=== PATIENT | female | born 2000 | race African-American/Black ===

== ENCOUNTER 2023-10-24 09:09 | Emergency (ER) | payer MEDICAID ==
[~2023-10-24] VITALS: Ht 162.6 cm; Wt 50.0 kg
[2023-10-24 09:16] VITALS: O2SAT 100
[2023-10-24 10:19] LABS: BASOPHILS % 0.7 % (0.0-2.0); DIFFERENTIAL COMMENT 0; EOSINOPHILS % 1.7 % (0.0-5.0); HEMATOCRIT. 32.6 % (36.0-48.0); HEMOGLOBIN. 10.3 g/dL (12.0-16.0); LYMPHOCYTES % 28.1 % (20.0-50.0); MEAN CORPUSCULAR HGB CONC 31.5 g/dL (31.0-37.0); MEAN CORPUSCULAR VOLUME 79.4 fL (81.0-99.0); MEAN PLATELET VOLUME 7.4 fl (7.4-10.4); MONOCYTES % 8.9 % (2.0-8.0); NEUTROPHILS % 60.6 % (40.0-76.0); PLATELET 407 x1000/uL (130-400); RED CELL DISTRIBUTION WIDTH 18.1 % (11.6-14.6); WHITE BLOOD COUNT 5.6 x1000/uL (4.5-11.0)
[2023-10-24 11:29] LABS: ALANINE AMINOTRANSFERASE 21 IU/L (10-49); ALBUMIN 3.8 g/dL (3.2-4.8); ASPARTATE AMINOTRANSFERASE 20 IU/L (<34); B-HCG QUANTITATIVE 197364 mIU/mL (<3); BILIRUBIN TOTAL 0.2 mg/dL (0.1-1.0); CALCIUM 8.2 mg/dL (8.7-10.4); CARBON DIOXIDE 22 mEq/L (21-32); CHLORIDE 109 mEq/L (98-107); CREATININE 0.5 mg/dL (0.6-1.0); GLUCOSE 82 mg/dL (70-105); POTASSIUM 3.8 mEq/L (3.5-5.1); PROTEIN TOTAL 6.6 g/dL (6.0-8.3); SODIUM 135 mEq/L (136-145); UREA NITROGEN BLOOD 7 mg/dL (9-23)
[2023-10-24] MEDS ORDERED: TOPUD PO (12:45)
[2023-10-24 12:54] VITALS: BP 96/60; PULSE 72; RESP 18; TEMP 98.3
[2023-10-24] MEDS: ACETAMINOPHEN 325MG TABLET PO ONE (13:15)
== END 2023-10-24 13:16 | disposition home or self-care (01) ==
LOC: ER 09:09
DX: O26.891 Other specified pregnancy related conditions, first trimester (principal); R10.10 Upper abdominal pain, unspecified; Z3A.08 8 weeks gestation of pregnancy
CPT/HCPCS: 36415; 76801; 80053; 84702; 85025; 86850; 86900; 99284

== ENCOUNTER 2024-01-06 12:02 | Emergency (ER) | payer MEDICAID, OTHER ==
[~2024-01-06] VITALS: Ht 157.5 cm; Wt 50.0 kg
[~2024-01-06 12:02] MED LIST: TOPUD PO
[2024-01-06 12:04] VITALS: O2SAT 100
[2024-01-06] MEDS: ACETAMINOPHEN 325MG TABLET PO ONE (13:36)
[2024-01-06 15:04] LABS: HEMATOCRIT. 32.5 % (36.0-48.0); HEMOGLOBIN. 10.9 g/dL (12.0-16.0); MEAN CORPUSCULAR HEMOGLOBIN 27.3 pg (28.0-32.0); MEAN CORPUSCULAR HGB CONC 33.6 g/dL (31.0-37.0); MEAN CORPUSCULAR VOLUME 81.4 fL (81.0-99.0); MEAN PLATELET VOLUME 7.4 fl (7.4-10.4); PLATELET 344 x1000/uL (130-400); RED BLOOD CELL COUNT 3.99 mill/uL (4.2-5.4); RED CELL DISTRIBUTION WIDTH 17.2 % (11.6-14.6); WHITE BLOOD COUNT 9.1 x1000/uL (4.5-11.0)
[2024-01-06 15:08] LABS: DIFFERENTIAL COMMENT 1
[2024-01-06 15:15] LABS: CARBON DIOXIDE 21 mEq/L (21-32); CHLORIDE 100 mEq/L (98-107); POTASSIUM 3.4 mEq/L (3.5-5.1); SODIUM 129 mEq/L (136-145)
[2024-01-06 15:16] LABS: CALCIUM 9.3 mg/dL (8.7-10.4)
[2024-01-06 15:20] LABS: CREATININE 0.4 mg/dL (0.6-1.0); GLUCOSE 89 mg/dL (70-105)
[2024-01-06 15:22] LABS: ALANINE AMINOTRANSFERASE 15 IU/L (10-49); ALBUMIN 4.2 g/dL (3.2-4.8); ASPARTATE AMINOTRANSFERASE 20 IU/L (<34)
[2024-01-06 15:23] LABS: BILIRUBIN DIRECT 0.1 mg/dL (<=3.0); BILIRUBIN TOTAL 0.5 mg/dL (0.1-1.0); PROTEIN TOTAL 6.8 g/dL (6.0-8.3)
[2024-01-06 15:25] LABS: UREA NITROGEN BLOOD < 5 mg/dL (9-23)
[2024-01-06 16:02] LABS: B-HCG QUANTITATIVE 41360 mIU/mL (<3)
[2024-01-06 16:23] LABS: PLATELET ESTIMATE NORMAL
[2024-01-06 16:51] LABS: CLARITY URINE CLOUDY (CLEAR); COLOR URINE YELLOW (YELLOW); GLUCOSE URINE NEGATIVE (NEGATIVE); KETONES URINE TRACE (NEGATIVE); LEUKOCYTE ESTERASE URINE 3+ (NEGATIVE); NITRITE URINE POSITIVE (NEGATIVE); OCCULT BLOOD URINE NEGATIVE (NEGATIVE); PH URINE 7.5 (4.5-8.0); PROTEIN URINE NEGATIVE (NEGATIVE); SPECIFIC GRAVITY URINE 1.004 (1.005-1.030)
[2024-01-06] MEDS ORDERED: CEPH250C2 MT (16:56)
[2024-01-06 17:00] VITALS: BP 128/82; PULSE 98; RESP 18; TEMP 100.4
[2024-01-06 17:04] LABS: RBC URINE 0-2 /hpf (0-2); SQUAMOUS EPITHELIAL CELL URINE 1+ /lpf (RARE/1+)
[2024-01-06 17:05] LABS: BACTERIA URINE 4+; YEAST URINE NONE SEEN
== END 2024-01-06 17:02 | disposition home or self-care (01) ==
LOC: ER 12:02
DX: O26.892 Other specified pregnancy related conditions, second trimester (principal); R51.9 Headache, unspecified; Z3A.18 18 weeks gestation of pregnancy
CPT/HCPCS: 36415; 76805; 80048; 80076; 81003; 84702; 85025; 86850; 86900; 87077; 87186; 99284

== ENCOUNTER 2024-07-10 00:45 | Inpatient (IN) | payer OTHER ==
[~2024-07-10] VITALS: Ht 152.4 cm; Wt 54.4 kg
[~2024-07-10 00:45] MED LIST changes: +CEPH250C2 MT
[2024-07-10 02:50] LABS: BASOPHILS % 0.5 % (0.0-2.0); DIFFERENTIAL COMMENT 0; EOSINOPHILS % 0.7 % (0.0-5.0); HEMATOCRIT. 34.8 % (36.0-48.0); HEMOGLOBIN. 10.8 g/dL (12.0-16.0); LYMPHOCYTES % 18.7 % (20.0-50.0); MEAN CORPUSCULAR HGB CONC 31.1 g/dL (31.0-37.0); MEAN CORPUSCULAR VOLUME 73.8 fL (81.0-99.0); MEAN PLATELET VOLUME 6.8 fl (7.4-10.4); MONOCYTES % 6.7 % (2.0-8.0); NEUTROPHILS % 73.4 % (40.0-76.0); PLATELET 400 x1000/uL (130-400); RED BLOOD CELL COUNT 4.71 mill/uL (4.2-5.4); RED CELL DISTRIBUTION WIDTH 21.6 % (11.6-14.6)
[2024-07-10 03:04] LABS: CHLORIDE 105 mEq/L (98-107); POTASSIUM 4.2 mEq/L (3.5-5.1); SODIUM 136 mEq/L (136-145)
[2024-07-10 03:05] LABS: CALCIUM 10.5 mg/dL (8.7-10.4); CARBON DIOXIDE 25 mEq/L (21-32)
[2024-07-10 03:10] LABS: CREATININE 0.8 mg/dL (0.6-1.0); GLUCOSE 105 mg/dL (70-105); UREA NITROGEN BLOOD 11 mg/dL (9-23)
[2024-07-10 03:15] LABS: HCG SCREEN NEGATIVE
[2024-07-10] MEDS: CEFTRIAXONE 2GM/50ML 50 ML IV ONE (05:12)
[2024-07-10] MEDS: ACETAMINOPHEN 1000MG/100ML 100 ML IV ONE (05:45)
[2024-07-10] MEDS: SODIUM CHLORIDE 0.9% 1,000 ML IV ONE (06:31)
[2024-07-10] MEDS: AMPICILLIN SOD/SULBACTAM NA 3 G in SODIUM CHLORIDE 0.9% 100 ML IV SCH (06:35)
[2024-07-10] MEDS ORDERED: IOHEXOL-300 100 ML BOTTLE ONE (06:48)
[2024-07-10 12:30] VITALS: BP 104/58; PULSE 86; RESP 18; TEMP 36.72516; O2SAT 98
[2024-07-10 14:07] VITALS: BP 103/58; PULSE 86; RESP 19; TEMP 36.7516
[2024-07-10 16:00] VITALS: BP 110/72; PULSE 79; RESP 19; TEMP 36.50292; O2SAT 100
[2024-07-10 20:00] VITALS: BP 105/58; PULSE 75; RESP 18; TEMP 36.114; O2SAT 100
[2024-07-10] MEDS: ACETAMINOPHEN 650MG/20.3ML UDC PO PRN (20:42)
[2024-07-10] MEDS: AMPICILLIN SOD/SULBACTAM NA 1.5 G in SODIUM CHLORIDE 0.9% 50 ML IV SCH (23:01)
[2024-07-11] VITALS: BP 106/54; PULSE 62; RESP 18; TEMP 36.05844; O2SAT 100
[2024-07-11 04:00] VITALS: BP 105/60; PULSE 65; RESP 18; TEMP 36.16956; O2SAT 100
[2024-07-11 06:55] LABS: CHLORIDE 108 mEq/L (98-107); POTASSIUM 4.5 mEq/L (3.5-5.1); SODIUM 140 mEq/L (136-145)
[2024-07-11 06:56] LABS: CALCIUM 9.6 mg/dL (8.7-10.4); CARBON DIOXIDE 26 mEq/L (21-32)
[2024-07-11 07:01] LABS: CREATININE 0.6 mg/dL (0.6-1.0); GLUCOSE 81 mg/dL (70-105); UREA NITROGEN BLOOD 7 mg/dL (9-23)
[2024-07-11 07:31] LABS: BASOPHILS % 0.4 % (0.0-2.0); DIFFERENTIAL COMMENT 0; EOSINOPHILS % 5.6 % (0.0-5.0); HEMATOCRIT. 30.7 % (36.0-48.0); HEMOGLOBIN. 9.4 g/dL (12.0-16.0); LYMPHOCYTES % 44.6 % (20.0-50.0); MEAN CORPUSCULAR HEMOGLOBIN 22.8 pg (28.0-32.0); MEAN CORPUSCULAR HGB CONC 30.8 g/dL (31.0-37.0); MEAN CORPUSCULAR VOLUME 74.1 fL (81.0-99.0); MEAN PLATELET VOLUME 7.1 fl (7.4-10.4); MONOCYTES % 9.4 % (2.0-8.0); PLATELET 347 x1000/uL (130-400); RED BLOOD CELL COUNT 4.14 mill/uL (4.2-5.4); RED CELL DISTRIBUTION WIDTH 20.8 % (11.6-14.6); WHITE BLOOD COUNT 4.4 x1000/uL (4.5-11.0)
[2024-07-11 08:00] VITALS: BP 121/70; PULSE 67; RESP 20; TEMP 36.44736; O2SAT 100
[2024-07-11 12:00] VITALS: BP 113/64; PULSE 76; RESP 20; TEMP 36.44736; O2SAT 99
[2024-07-11 16:00] VITALS: BP 116/65; PULSE 82; RESP 18; TEMP 36.72516; O2SAT 98
[2024-07-11 17:52] LABS: IRON 27 ug/dL (50-170)
[2024-07-11 17:55] LABS: TOTAL IRON BINDING CAPACITY 374 ug/dl (250-425)
[2024-07-11 18:42] LABS: *AMPHETAMINES SCREEN URINE NEGATIVE (NEGATIVE); *BARBITURATES SCREEN URINE NEGATIVE (NEGATIVE); *BENZODIAZEPINES SCREEN URINE NEGATIVE (NEGATIVE); *COCAINE SCREEN URINE NEGATIVE (NEGATIVE); CANNABINOID URINE SCREEN NEGATIVE (NEGATIVE); ECSTASY MDMA SCREEN URINE NEGATIVE (NEGATIVE); METHADONE URINE SCREEN NEGATIVE (NEGATIVE); OPIATES URINE SCREEN NEGATIVE (NEGATIVE); PHENCYCLIDINE URINE SCREEN NEGATIVE (NEGATIVE)
[2024-07-11] MEDS ORDERED: NALOXONE HCL 0.4MG/ML VIAL IV PRN (19:00)
[2024-07-11 20:00] VITALS: BP 127/60; PULSE 80; RESP 19; TEMP 36.22512; O2SAT 98
[2024-07-11] MEDS: VANCOMYCIN 1GM/200ML PMX (BAXTER) IV SCH (21:01)
[2024-07-12] VITALS: BP 113/75; PULSE 82; RESP 18; TEMP 36.33624; O2SAT 98
[2024-07-12 04:00] VITALS: BP 115/73; PULSE 83; RESP 18; TEMP 36.16956; O2SAT 100
[2024-07-12 08:00] VITALS: BP 107/76; PULSE 67; RESP 17; TEMP 36.28068; O2SAT 97
[2024-07-12 09:59] LABS: DIFFERENTIAL COMMENT 0; EOSINOPHILS % 3.8 % (0.0-5.0); HEMATOCRIT. 33.9 % (36.0-48.0); HEMOGLOBIN. 10.4 g/dL (12.0-16.0); LYMPHOCYTES % 38.5 % (20.0-50.0); MEAN CORPUSCULAR HEMOGLOBIN 22.4 pg (28.0-32.0); MEAN CORPUSCULAR HGB CONC 30.5 g/dL (31.0-37.0); MEAN CORPUSCULAR VOLUME 73.4 fL (81.0-99.0); MEAN PLATELET VOLUME 6.7 fl (7.4-10.4); MONOCYTES % 5.5 % (2.0-8.0); NEUTROPHILS % 51.2 % (40.0-76.0); PLATELET 403 x1000/uL (130-400); RED BLOOD CELL COUNT 4.62 mill/uL (4.2-5.4); WHITE BLOOD COUNT 3.3 x1000/uL (4.5-11.0)
[2024-07-12 10:03] LABS: CARBON DIOXIDE 29 mEq/L (21-32); CHLORIDE 103 mEq/L (98-107); POTASSIUM 4.1 mEq/L (3.5-5.1); SODIUM 138 mEq/L (136-145)
[2024-07-12 10:04] LABS: CALCIUM 9.7 mg/dL (8.7-10.4)
[2024-07-12 10:07] LABS: CREATININE 0.6 mg/dL (0.6-1.0)
[2024-07-12 10:09] LABS: GLUCOSE 110 mg/dL (70-105); UREA NITROGEN BLOOD 9 mg/dL (9-23)
[2024-07-12 12:00] VITALS: BP 108/73; PULSE 74; RESP 18; TEMP 36.50292; O2SAT 99
[2024-07-12 16:00] VITALS: BP 110/65; PULSE 72; RESP 19; TEMP 36.50292; O2SAT 97
[2024-07-12 20:00] VITALS: BP 103/72; PULSE 95; RESP 18; TEMP 36.50292; O2SAT 95
[2024-07-13] VITALS (7 sets, daily range): BP systolic 101–115; BP diastolic 30–76; PULSE 68–88; RESP 17–19; TEMP 36.44736–36.83628; O2SAT 90–99
[2024-07-13 10:56] LABS: CHLORIDE 104 mEq/L (98-107); POTASSIUM 4.5 mEq/L (3.5-5.1); SODIUM 140 mEq/L (136-145)
[2024-07-13 10:57] LABS: CALCIUM 9.8 mg/dL (8.7-10.4); CARBON DIOXIDE 29 mEq/L (21-32)
[2024-07-13 11:02] LABS: CREATININE 0.6 mg/dL (0.6-1.0); GLUCOSE 73 mg/dL (70-105); UREA NITROGEN BLOOD 9 mg/dL (9-23)
[2024-07-13 11:18] LABS: BASOPHILS % 0.5 % (0.0-2.0); DIFFERENTIAL COMMENT 0; EOSINOPHILS % 3.6 % (0.0-5.0); HEMATOCRIT. 34.6 % (36.0-48.0); HEMOGLOBIN. 10.7 g/dL (12.0-16.0); LYMPHOCYTES % 43.6 % (20.0-50.0); MEAN CORPUSCULAR HEMOGLOBIN 22.8 pg (28.0-32.0); MEAN CORPUSCULAR HGB CONC 30.9 g/dL (31.0-37.0); MEAN CORPUSCULAR VOLUME 73.6 fL (81.0-99.0); MONOCYTES % 8.4 % (2.0-8.0); NEUTROPHILS % 43.9 % (40.0-76.0); PLATELET 464 x1000/uL (130-400); RED CELL DISTRIBUTION WIDTH 20.4 % (11.6-14.6); WHITE BLOOD COUNT 3.6 x1000/uL (4.5-11.0)
[2024-07-14] VITALS: BP 87/51; PULSE 72; RESP 19; TEMP 36.50292; O2SAT 99
[2024-07-14 01:00] VITALS: BP 101/52
[2024-07-14 04:00] VITALS: BP 137/59; PULSE 86; RESP 19; TEMP 36.72516; O2SAT 100
[2024-07-14 12:00] VITALS: BP 118/72; PULSE 80; RESP 18; TEMP 37.503; O2SAT 98
[2024-07-14 16:00] VITALS: BP 101/67; PULSE 78; RESP 18; TEMP 36.9474; O2SAT 99
[2024-07-14] MEDS: HYDROCODONE/ACETAMINOPHEN 5/325MG TABLET PO PRN (17:55)
[2024-07-15 08:00] VITALS: BP 104/59; PULSE 74; RESP 17; TEMP 36.05844; O2SAT 100
[2024-07-15 12:00] VITALS: BP 108/68; PULSE 80; RESP 18; TEMP 36.28068; O2SAT 98
[2024-07-15 16:00] VITALS: BP 103/63; PULSE 81; RESP 18; TEMP 36.61404; O2SAT 100
[2024-07-15 20:00] VITALS: BP 106/65; PULSE 84; RESP 19; TEMP 36.55848; O2SAT 99
[2024-07-16 04:00] VITALS: BP 107/68; PULSE 86; RESP 20; TEMP 37.05852; O2SAT 100
[2024-07-16 08:00] VITALS: BP 105/69; PULSE 63; RESP 18; TEMP 36.50292; O2SAT 97
[2024-07-16 12:00] VITALS: BP 96/59; PULSE 66; RESP 17; TEMP 36.72516; O2SAT 98
[2024-07-16] MEDS ORDERED: LINE600T14 MT (13:18)
[2024-07-16] MEDS ORDERED: AMOX1TAB16 MT (13:18)
[2024-07-16 13:54] VITALS: BP 102/58; PULSE 68; TEMP 98.1; O2SAT 99
== END 2024-07-16 15:45 | disposition home or self-care (01) | DRG 720 ==
LOC: ER 00:45 → 6EST 06:27 → EDBEDREQSVC 06:31 → EDBEDREQTM 06:31 → EDBEDREQ 06:31
PROVIDERS: ADMIT Internal Medicine; ATTEND Internal Medicine
DX: A41.9 Sepsis, unspecified organism (principal); M84.48XA Pathological fracture, other site, initial encounter for fracture; M27.2 Inflammatory conditions of jaws; D50.9 Iron deficiency anemia, unspecified; L03.211 Cellulitis of face; Z87.81 Personal history of (healed) traumatic fracture; M86.9 Osteomyelitis, unspecified; M89.78 Major osseous defect, other site
CPT/HCPCS: 36415; 70487; 70540; 80048; 80202; 80305; 82728; 83540; 83550; 83605; 84145; 84703; 85025; 87070; 87077; 87186; 99285; C1893; J0295; J0696; J3370; J7030; J7050; Q9967; J0131